=== PATIENT | female | born 1945 | race Caucasian/White ===

== ENCOUNTER 2017-04-28 10:00 | Inpatient (IN) | payer MEDICARE, BC, MEDICAID ==
[~2017-04-28 10:00] MED LIST: ACETAMINOPHEN 1,000 MG/100 ML BTL IV ONE; CELECOXIB 100 MG CAPSULE PO ONE; FAMOTIDINE 20MG TABLET PO ONE; MECLIZINE 25 MG TABLET PO ONE; METOCLOPRAMIDE 10 MG TABLET PO ONE; VANCOMYCIN HCL 1,000 MG in DEXTROSE 5 % IN WATER 250 ML IVPB ONE
[2017-04-28 10:25] LABS: PROTHROMBIN TIME (PATIENT) 10.6 SECONDS (9.5-12.1)
[2017-04-28] MEDS ORDERED: ACETAMINOPHEN 325 MG TAB PO PRN (10:57)
[2017-04-28] MEDS ORDERED: ONDANSETRON HCL IV 4 MG/2 ML VIAL IVP PRN (10:57)
[2017-04-28] MEDS ORDERED: KETOROLAC 30 MG/ML VIAL IVP PRN ×2 (10:57)
[2017-04-28] MEDS ORDERED: METOCLOPRAMIDE HCL 10 MG/2 ML VIAL IVP PRN (10:57)
[2017-04-28] MEDS ORDERED: ACETAMINOPHEN W/ CODEINE 300MG/30MG TABLET PO PRN ×2 (10:57)
[2017-04-28] MEDS ORDERED: HYDROMORPHONE HCL 2 MG/ML VIAL IM PRN ×2 (10:57)
[2017-04-28] MEDS ORDERED: AL HYDROX/MAG HYDROX 30ML UD PO PRN (10:57)
[2017-04-28] MEDS ORDERED: MAGNESIUM HYDROXIDE 30 ML UDC PO PRN (10:57)
[2017-04-28] MEDS ORDERED: TRAMADOL HCL 50 MG TABLET PO PRN ×2 (10:57)
[2017-04-28] MEDS ORDERED: HYDROCODONE/APAP 5/325MG TABLET PO PRN (10:57)
[2017-04-28] MEDS ORDERED: HYDROCODONE/APAP 7.5/325MG TABLET PO PRN (10:57)
[2017-04-28] MEDS ORDERED: ACETAMINOPHEN W/ CODEINE 300MG/60MG TABLET PO PRN ×2 (10:57)
[2017-04-28] MEDS ORDERED: DIPHENHYDRAMINE HCL 25 MG CAPSULE PO PRN (10:57)
[2017-04-28] MEDS ORDERED: ZOLPIDEM TARTRATE 5 MG TABLET PO PRN (10:57)
[2017-04-28] MEDS ORDERED: MORPHINE SULFATE 5 MG/ML PFS IVP PRN ×4 (10:57)
[2017-04-28] MEDS ORDERED: PROMETHAZINE HCL 12.5 MG in 0.9 % SODIUM CHLORIDE 100ML 50 ML IVPB PRN (10:57)
[2017-04-28] MEDS ORDERED: BISACODYL 10 MG SUPP RC PRN (10:57)
[2017-04-28 11:23] LABS: ABO GROUP A
[2017-04-28 11:24] LABS: ANTIBODY SCREEN NEGATIVE (NEGATIVE); RH TYPE POSITIVE
[2017-04-28] MEDS ORDERED: PROPOFOL 10 MG/ML VIAL IV ONE (14:00)
[2017-04-28] MEDS ORDERED: MIDAZOLAM HCL 2MG/2ML VIAL IV ONE (14:00)
[2017-04-28] MEDS ORDERED: BUPIVACAINE 0.5% W/EPI MPF 30 ML VIAL IVP ONE ×2 (14:00)
[2017-04-28] MEDS ORDERED: HYDROMORPHONE HCL 2 MG/ML VIAL IV ONE (14:00)
[2017-04-28] MEDS ORDERED: VANCOMYCIN HCL 1 GM VIAL IVPB ONE ×2 (14:00)
[2017-04-28] MEDS ORDERED: BUPIVACAINE LIPOSOME 266MG/20ML VIAL IV ONE (14:00)
[2017-04-28] MEDS ORDERED: ONDANSETRON HCL IV 4 MG/2 ML VIAL IVP ONE ×2 (14:00→21:00)
[2017-04-28] MEDS ORDERED: FENTANYL PF 100MCG/2ML VIAL IV ONE (14:00)
[2017-04-28] MEDS ORDERED: TRANEXAMIC ACID 1,000 MG/10 ML ML IV ONE ×2 (14:00)
[2017-04-28] MEDS ORDERED: DIPHENHYDRAMINE HCL IV 50 MG/ML VIAL IVP ONE (14:00)
[2017-04-28] MEDS ORDERED: KETOROLAC 30 MG/ML VIAL IVP ONE (14:00)
[2017-04-28] MEDS ORDERED: PNEUM 13-VAL/PF 0.5 ML IM ONE (16:10)
[2017-04-28] MEDS ORDERED: CYCLOBENZAPRINE 10MG TABLET PO PRN ×2 (16:40→16:41)
[2017-04-28] MEDS ORDERED: ALBUTEROL HFA 8 GM INHALER INH PRN (16:41)
[2017-04-28] MEDS ORDERED: DEXTROSE 5 % AND 0.9 % NACL 1,000 ML IV PRN (17:00)
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
[2017-04-28] MEDS: METFORMIN 500 MG TABLET PO SCH (17:27)
[2017-04-28] MEDS: NALOXONE 0.4 MG/1 ML VIAL IVP PRN (19:57)
[2017-04-28] MEDS: GABAPENTIN 100 MG CAPSULE PO SCH (21:36)
[2017-04-28] MEDS: MONTELUKAST SODIUM 10MG TABLET PO SCH (21:36)
[2017-04-28] MEDS: GABAPENTIN 300 MG CAPSULE PO SCH (21:36)
[2017-04-28] MEDS: TRAZODONE 50 MG TABLET PO SCH (21:37)
[2017-04-28] MEDS: DOCUSATE SODIUM 100 MG CAPSULE PO SCH (21:37)
[2017-04-28] MEDS: FERROUS SULFATE 325 MG TAB PO SCH (21:37)
[2017-04-28] MEDS: VANCOMYCIN HCL 1,000 MG in DEXTROSE 5 % IN WATER 250 ML IVPB SCH ×2 (23:46)
--- NOTE | 2017-04-29 00:40 | Operative Note ---
DATE OF SURGERY: 04/28/2017 PREOPERATIVE DIAGNOSIS: End-stage right knee arthrosis POSTOPERATIVE DIAGNOSIS: End-stage right knee arthrosis. PROCEDURE: Right total knee arthroplasty. SURGEON: Roberto Jordan M.D. Anesthesia: Spinal. Eula Sloan CRNA. Complications: None. Blood Loss: Minimal. Tourniquet Time: Approximately 60 minutes. Operative Findings: [id number] medial compartment arthrosis. Components Placed: 2 gram Vancomycin, cement, [employer] II Oxinium total knee arthroplasty system size 5 femoral component, size 5 tibial baseplate, an 9 mm thick tibial poly insert, and a 35 mm cemented patellar component. INDICATIONS FOR OPERATION: This is a 72-year-old female who has persistent pain and dysfunction in her knee for several years. She failed nonoperative treatment and is scheduled for the procedure above. I explained the risks and benefits to her in detail for her diagnosis and procedures including but not limited to, infection, nerve injury, vessel injury, persistent pain, numbness and tingling in the knee, periprosthetic fracture, need for resection arthroplasty should the components become infected or loosened, nerve injury, vessel injury, need for anticoagulation to prevent blood clots and risks associated with these medications and all of her questions were answered. The rehab and healing course were outlined and she agreed to the procedure. PROCEDURE: The patient was brought to the O.R. and placed in the supine position for the proper surgery. Spinal anesthesia induced and her right lower extremity was prepped and draped in sterile fashion. Right knee was prepped again with ChloraPrep after it was draped. Intraoperative time-out was performed. The leg was exsanguinated with an Esmarch. The knee was flexed and the tourniquet inflated to 250 mmHg pressure. Next, the skin and subcutaneous tissue was dissected down to the capsule. I Incised the capsule medially around the medial border of the of the patella to the tibial tubercle. I incised the vastus medialis in line with its fibers in a mid vastus approach. I partially resected the retropatellar fat pad, elevated the capsule subperiosteally and medially, everted the patella and flexed the knee. She had [id number] medial compartment arthrosis. Next, we drilled an intercondylar drill hole and inserted the intramedullary guide luiz with 6 degree cutting block, aligned the distal femoral condyles, pinned it in place in the +2 mm position and cut the distal femoral condyles. Next, we placed the sizing jig on the distal femoral condyle and sized it to be right on size 5. Through the previously placed pinholes, we placed the 5-in1 cutting jig. We dialed in the anterior cut so it would come out flush to the anterior cortex without notching. We cut that and it was good cut. We pinned it and then cut the remaining chamfer cuts in the usual fashion. Next, we placed a size 5 trial component, centered it, pinned it, and removed osteophytes off the periphery and had a good foot. Then we inserted the cruciate resection block and then reamed out and box osteotomed on the cruciate bone block. Next, attention was turned to the tibia. We seated the spikes in the intertubercular groove in line with the luiz on the tibial anatomic axis and reference for the cutting jig for a 7 mm cut off the high lateral plateau. We pinned it in place with two anterior posterior pins provisionally. Next, we rechecked alignment of the cutting jig with the drop luiz centered on the tibial anatomic axis, cross-pinned it completing its fixation and cut the tibia. Next, we removed the osteophytes from the posterior femoral condyles, checked flexion and extension gaps and there were symmetric flexion and extension gaps with a 9 mm thick poly insert. Overall alignment of cuts in extension was anatomic with valgus orientation with the alignment luiz centered on the hip joint and ankle joint. Next, we took the knee into flexion. We sized the tibial baseplate to a size 5. We replaced all trial components and set the rotation of the tibial baseplate again in extension using the alignment luiz centered on the hip joint and ankle joint. Marked with electrocautery hinson off the anterior tibial cortex off the laser hinson of the tibial baseplate. Next, we measured the patella to be 22 mm. We set the cutting jig at 13 mm to allow for a 9 mm thick poly insert. We cut the patella and remeasured. It was right on 13. It was sized to be a 35, we medialized as much as possible and drilled three peg holes and then placed the trial patella component and mixed cement. The patella tracked nicely handsfree, had full extension and flexion to 140 to 150 degrees and again symmetric flexion and extension gaps. Next, we took the knee back into flexion, set the tibial baseplate off the previously placed electrocautery hinson, pinned it in place, and reamed out and punched out the tibial keel. Next, we then changed gloves, brought in a clean sheet and copiously irrigated with pulse lavage and antibiotic solution all bony surfaces and then pre- coated both surfaces and impacted down the tibial component and then the femoral component and clamped down the patella component. We held it there and removed excess cement. We inserted the trial tibial poly liner and held the knee in extension until cement hardened. Once cement hardened, we took the knee in flexion. We removed excess cement around the component edges and then we injected our 0.5% Marcaine with Epinephrine and Exparel and tranexamic acid mixture around the deep capsule, medial and lateral periosteum, and vastus medialis and subcutaneous. We inserted the real tibial poly insert and verified it was interlocked medially and laterally and final range of motion was the same. Next, we irrigated copiously and closed the knee in flexion with a running #2 Quill. We irrigated again and closed the skin deep with 2-0 Vicryl and ZipLine and injected subcutaneous again with 0.5% Marcaine with Epinephrine, 2 gm tranexamic acid, and Exparel mixture. She received 2 gm tranexamic acid IV pre- op and post-op as well and Toradol. A sterile dressing was applied. ILEANA wrap. The patient tolerated the procedure well. No intraoperative complications. All sponge, needle, and blade counts correct. Recovery stable, neurovascularly intact. She will be discharged to the floor for total joint knee pathway and likely discharged in one to two days to home. CC: Dr. Baltazar JOB NUMBER: [id number] [employer]
[2017-04-29] MEDS: NALOXONE 0.4 MG/1 ML VIAL IVP PRN (05:01)
[2017-04-29 06:40] LABS: HEMATOCRIT 33.3 % (35.0-47.0); HEMOGLOBIN 10.9 gm/dl (11.6-16.0)
[2017-04-29] MEDS: METFORMIN 500 MG TABLET PO SCH ×2 (08:18→17:30)
[2017-04-29] MEDS: DOCUSATE SODIUM 100 MG CAPSULE PO SCH ×2 (09:50→21:37)
[2017-04-29] MEDS: FERROUS SULFATE 325 MG TAB PO SCH ×2 (09:51→21:37)
[2017-04-29] MEDS: GABAPENTIN 100 MG CAPSULE PO SCH ×2 (09:53→21:36)
[2017-04-29] MEDS: GABAPENTIN 300 MG CAPSULE PO SCH ×2 (09:53→21:36)
[2017-04-29] MEDS: CELECOXIB 100 MG CAPSULE PO SCH (09:54)
[2017-04-29] MEDS: DULOXETINE HCL 30 MG CAPSULE.DR PO SCH (09:55)
[2017-04-29] MEDS: AMLODIPINE BESYLATE 5MG TAB PO SCH (09:56)
[2017-04-29] MEDS: HYDROCODONE/APAP 7.5/325MG TABLET PO PRN ×2 (10:15→15:35)
[2017-04-29] MEDS: LISINOPRIL 20 MG TABLET PO SCH (11:39)
[2017-04-29] MEDS: RIVAROXABAN 10 MG TABLET PO SCH (11:39)
[2017-04-29] MEDS: VANCOMYCIN HCL 1,000 MG in DEXTROSE 5 % IN WATER 250 ML IVPB SCH ×2 (11:42)
--- NOTE | 2017-04-29 12:02 | Physical Therapy Tx Note ---
Physical Therapy Tx Note - Treatment Note Tolerated: Fair (Patient having a bit of trouble believing that right knee strong enough to hold her up: says not sure about either leg and that will hold her up. Able to move sit to stand from seated walker to FWW in room but needed assist getting balance and leaning forward enough to maintain balance walking. Ambulated from bathroom to bed then turned with lots of cueing to sit on edge of bed. Working with OT at the time so PT came back later to help patient with exercises while supine in bed and able to do heel slides, SLR, quad, glut and ham sets then ankle pumps quite well and with good muscle contraction. Patient said she would be glad to sit up in chair for lunch so assisted minimally with getting patient sitting edge of bed then sit to stand from bed with cues to push from rail on bed and weightbear as tolerated on right LE and left. Stepped two to three steps over to chair and sat up in chair with right LE supported on base of tray table, call light and water close. Nursing came into room to give more meds.) Total Time Spent With Patient: 30 Physical Therapy Tx Note: Detail (As above in "Tolerated": able to do exercises in bed and ambulate short distance to chair with cues to lean into walker not backward and put most of weight on left LE, WBAT right.) Physical Therapy Problem List: Detail (1) Decreased R Knee ROM/Strength 2) Gait skills not assessed) Physical Therapy Goals: 1) The patient will be able to ambulate with 4WW with supervision household distances so she can discharge safely to the home environment. 2) The patient will be independent in HEP so she can increase ROM and strength of the R Knee. Prognosis: Good (Patient needs more practice with gait with new knee and working on balance so safe to ambulate with any assistive device.) Physical Therapy Plan: The patient will be seen 1-2x/day M-F for gait training and LE strengthening activities.
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
--- NOTE | 2017-04-29 14:54 | Physical Therapy Tx Note ---
Physical Therapy Tx Note - Treatment Note Tolerated: Good Total Time Spent With Patient: 30 Physical Therapy Tx Note: Detail (The patient was sitting in her chair upon arrival. The patient was able to transfer from sit to stand with verbal cues for proper hand placement and CGA x2. The patient requested to use the restroom , and required verbal cues and tactile cues for proper hand placement on grab bars for transfer to toilet. She also required verbal cues for proper turning within the restroom for a safe transfer. She was able to transfer from the toilet to standing with CGA x2. She was then able to ambulate from her room to the PACU doors and back (about 215 feet total) with a 2WW and WBAT on R. Upon arrival to her room, the patient required multiple verbal cues while turning the walker to return to bed. She required cues to move closer toward the bed and to keep her feet inside the walker while turning. The patient required maximal verbal cues for turning with a walker, patient's knees began to buckle and a commode was placed behind patient to sit on. The patient required a standing pivot transfer with min. assist x2 from the commode/seat to her bed due to lack of safety awareness. She was left in bed with head elevated and her call light in reach.) Physical Therapy Problem List: Detail (1) Decreased R Knee ROM/Strength 2) Gait skills not assessed) Physical Therapy Goals: 1) The patient will be able to ambulate with 4WW with supervision household distances so she can discharge safely to the home environment. 2) The patient will be independent in HEP so she can increase ROM and strength of the R Knee. 3) The patient will be able to safely turn walker and sit without verbal or tactile cues. Physical Therapy Plan: The patient will be seen 1-2x/day M-F for gait training and LE strengthening activities.
[2017-04-29] MEDS: HYDROCODONE/APAP 5/325MG TABLET PO PRN (21:36)
[2017-04-29] MEDS: TRAZODONE 50 MG TABLET PO SCH (21:37)
[2017-04-29] MEDS: MONTELUKAST SODIUM 10MG TABLET PO SCH (21:39)
[2017-04-30] MEDS: HYDROCODONE/APAP 5/325MG TABLET PO PRN (05:42)
[2017-04-30 06:40] LABS: HEMATOCRIT 28.4 % (35.0-47.0); HEMOGLOBIN 9.5 gm/dl (11.6-16.0)
[2017-04-30] MEDS: METFORMIN 500 MG TABLET PO SCH (08:20)
[2017-04-30] MEDS: LISINOPRIL 20 MG TABLET PO SCH (09:46)
[2017-04-30] MEDS: CELECOXIB 100 MG CAPSULE PO SCH (09:46)
[2017-04-30] MEDS: GABAPENTIN 100 MG CAPSULE PO SCH (09:46)
[2017-04-30] MEDS: AMLODIPINE BESYLATE 5MG TAB PO SCH (09:46)
[2017-04-30] MEDS: FERROUS SULFATE 325 MG TAB PO SCH (09:46)
[2017-04-30] MEDS: GABAPENTIN 300 MG CAPSULE PO SCH (09:46)
[2017-04-30] MEDS: RIVAROXABAN 10 MG TABLET PO SCH (09:46)
[2017-04-30] MEDS: DOCUSATE SODIUM 100 MG CAPSULE PO SCH (09:46)
[2017-04-30] MEDS: DULOXETINE HCL 30 MG CAPSULE.DR PO SCH (09:47)
--- NOTE | 2017-04-30 10:33 | Occupational Therapy Tx Note ---
Occupational Therapy Tx Note - Treatment Note Tolerated: Good Total Time Spent With Patient: 35 Occupational Therapy Treatment Note: Detail (Pt. Ind. to don and doff t-shirt with additional time. Min A sit<>stand t/f from seated EOB to walker. Mod VC for safe t/f techniques to prevent falling backwards. Ind. bed mobility. Pt. stated fear of falling and that she doesn't have emergency call buttons at her apt. Discussed potential of obtaining emergency necklace pendant system to wear at her apt. Will call administrator social welfare. Educ. provided in use of sailmaker (which pt. stated she has at home) and adaptive dressing techniques. Pt. declined to use sailmaker d/t afraid it will irritate her carpal tunnel syndrome. Max VC and repetition of directions to encourage pt. to implement adaptive dressing techniques to decrease fall risk. Pt. bends over towards floor and tries to lift her LE to thread pant legs and loses balance while seated (but is able to recover without assist). Pt. donned and doffed elastic waist pants with Min A for sit<>stand t/f, but exhibited awkward postures and movement patterns. Pt. performed better than at evaluation, and stated she felt better. Pt. would benefit from cont. OT services, especially when she returns home.) Occupational Therapy Problem List: Detail (Decreased independence and safety with self-care skills such as dressing and toilet transfers, and increased fall risk.) Occupational Therapy Goals: 1) pt. will be able to toilet with modified independence. 2) pt. will demo. ability to dress with modified independence. Prognosis: Moderate Occupational Therapy Plan: Pt. will be seen 2-4x/week M-F during typical rehab business hours during hospital stay.
--- NOTE | 2017-04-30 10:43 | Physical Therapy Tx Note ---
Physical Therapy Tx Note - Treatment Note Tolerated: Good (Patient doing much better today and able to walk even with four wheeled walker safely, but tends to lean forward with that walker. Safer on turns: practiced several turns without loss of balance. Able to do exercises normally, but quite a bit of pain with knee flexion yet.) Physical Therapy Tx Note: Detail (Patient seen in room, able to move supine to sit independently then sit to stand with cues secondary to still wants to pull self up with walker. With cues able to stand correctly from sitting then ambulated about 100+ feet with multiple turns for safety with turning. Has another walker now: FWW and adjusted height for that then reviewed exercises with patient: heel slides, quad, glut and ham sets, SLR and ankle pumps. Encouraged patient to work on ROM for knee until sees home therapist.) Physical Therapy Problem List: Detail (1) Decreased R Knee ROM/Strength 2) Gait a little shaky yet and turns difficult.) Physical Therapy Goals: 1) The patient will be able to ambulate with 4WW with supervision household distances so she can discharge safely to the home environment. 2) The patient will be independent in HEP so she can increase ROM and strength of the R Knee. 3) The patient will be able to safely turn walker and sit without verbal or tactile cues. Prognosis: Good (Patient doing extremely well now with turning and gait with FWW as well as four-wheeled walker: safe but does tend to lean forward with gait with four wheeled walker. Able to put as much weight as needed on right LE. Doing great with exercises now, bed mobility and gait. Plans to go home today and able to discharge from PT now secondary to has met goals.) Physical Therapy Plan: The patient will be seen 1-2x/day M-F for gait training and LE strengthening activities.
== END 2017-04-30 14:00 | disposition home health service (06) | DRG 470 ==
LOC: MEDSURG 10:08 → UNDOADMIN 10:08 → EDSTATUS 13:00
PROVIDERS: ADMIT Orthopaedic Surgery; ATTEND Orthopaedic Surgery
PROC: 0SRC069 Replacement of Right Knee Joint with Oxidized Zirconium on Polyethylene Synthetic Substitute, Cemented, Open Approach (ICD-10-PCS; principal; 2017-04-28 12:00)
DX: M17.11 Unilateral primary osteoarthritis, right knee (principal); I10 Essential (primary) hypertension; E11.9 Type 2 diabetes mellitus without complications; Z79.84 Long term (current) use of oral hypoglycemic drugs; J44.9 Chronic obstructive pulmonary disease, unspecified
CPT/HCPCS: 36416; 82948; 85014; 85018; 85610; 86850; 86900; 86901; 90670; 94760; 97110; 97116; 97166; 97530; 97535; C1776; J1200; J1885; J2310; J2405; J7042; J7060